=== PATIENT | female | born 1980 | race Caucasian/White ===

== ENCOUNTER 2016-06-17 19:32 | Emergency (ER) | payer BC ==
[~2016-06-17 19:32] MED LIST: ANTIBIOTIC; COGENTIN1 MG/TA1 PO; CYMBALTA30 MG PO; CYMBALTA60 MG PO; FOLIC ACID1 MG PO; IBUPROFEN600 MG PO; LEXAPRO20 M1 PO; NAPROSYN500 MG; NORCO 5/325 TAB1 TAB PO; PRENATAL1 TAB; PRENATAL1 TAB PO; PROMETRIUM100 MG; SEROQUEL100 MG PO; TOPAMAX100 M1 PO; TOPAMAX50 MG PO; TRAZODONE HCL100 MG PO; TYLENOL W/CODEI1 TAB; VICODIN 5/500 T1 TAB PO; WELLBUTRIN SR150 M1 PO; ZOFRAN8 MG PO; ZYPREXA10 MG PO; ZYPREXA15 MG PO
== END 2016-06-17 20:45 | disposition left against medical advice (07) ==
LOC: EDMED 19:32
DX: Z53.21 Procedure and treatment not carried out due to patient leaving prior to being seen by health care provider (principal)